=== PATIENT | male | born 1960 | race Caucasian/White ===

== ENCOUNTER → 2017-04-15 | Outpatient (CLI) | payer BC ==
[2013-12-31 05:48] VITALS: BP 146/89
[~2017-04-15] MED LIST: 0.9 % SODIUM CHLORIDE 10 ML VIAL ONE; ALBU8.5H8 IH; CIPR500T94 PO; DEXAMETHASONE SOD PHOS 4 MG/ML VIAL ONE; IOHEXOL 300 MG/ML 50 ML VIAL. ONE; LIDOCAINE 1% PF 30 ML VIAL. ONE; MOME13HF2 IH; PANT40TA5 PO; RANI300C PO; SENN15TA10 PO; TEST1.25 TD; [UNRECOGNIZED DRUG - CODE] PO
== END | disposition home or self-care (01) ==
LOC: OPS 09:20
PROVIDERS: ATTEND Anesthesiology Pain Medicine
DX: M54.12 Radiculopathy, cervical region (principal); J45.909 Unspecified asthma, uncomplicated; K21.9 Gastro-esophageal reflux disease without esophagitis; Z88.6 Allergy status to analgesic agent
CPT/HCPCS: 62321; 99213; J2001; Q9967

== ENCOUNTER → 2017-05-27 | Outpatient (CLI) | payer BC ==
[2013-12-31 05:48] VITALS: BP 146/89
[~2017-05-27] MED LIST changes: -0.9 % SODIUM CHLORIDE 10 ML VIAL ONE
== END | disposition home or self-care (01) ==
LOC: SURG 10:08
PROVIDERS: ATTEND Anesthesiology Pain Medicine
DX: M54.12 Radiculopathy, cervical region (principal); J45.909 Unspecified asthma, uncomplicated; K21.9 Gastro-esophageal reflux disease without esophagitis; Z79.899 Other long term (current) drug therapy; Z88.6 Allergy status to analgesic agent
CPT/HCPCS: 62321; 99213; J1100; J2001; Q9967